=== PATIENT | male | born 1995 ===

== ENCOUNTER → 2020-09-22 | Day surgery (SDC) | payer OTHER ==
[~2020-09-22] MED LIST: ACETAMINOPHEN500 M1 PO; LORATADINE10 MG PO; NORCO 5-325 TA1 EACH PO; ONDANSETRON ODT8 MG PO
== END | disposition home or self-care (01) ==
LOC: FAS 09-18 09:00
DX: L05.01 Pilonidal cyst with abscess (principal); F17.210 Nicotine dependence, cigarettes, uncomplicated; Z20.822 Contact with and (suspected) exposure to COVID-19; Z98.890 Other specified postprocedural states
CPT/HCPCS: J0690; J1100; J1885; J2250; J2405; J2704; J2710; J3010; J7120